=== PATIENT | male | born 1960 | race Caucasian/White ===

== ENCOUNTER 2016-12-30 15:15 | Emergency (ER) | payer BC ==
[2016-12-30 15:27] VITALS: BP 121/90
--- NOTE | 2016-12-30 15:47 | EDM.PDOC ---
ED HPI Skin/Rash - General Chief Complaint: Laceration Stated Complaint: FINGER CUT BLEADING [phone] Time Seen by Provider: 12/30/16 15:37 History Limitations: Reports: No limitations - History of Present Illness INITIAL COMMENTS - FREE TEXT/NARRATIVE: pt states that he cut his finger on a mandolin while cutting vegetables. right thumb with avulsion noted. bleeding uncontrolled upon arrival. Symptom Onset Date: 12/30/16 Timing: Reports: still present Location, Skin: Reports: upper extremity, right Quality: Reports: Throbbing Place of Occurrence: home Associated Symptoms: Reports: no other symptoms - Related Data Allergies Allergy/AdvReac Type Severity Reaction Status Date / Time No Known Allergies Allergy Verified 12/30/16 15:21 Home Meds: Ambulatory Orders Medication Instructions Recorded Confirmed Aspirin 1 tab PO DAILY 12/30/16 12/30/16 Lutein/Minerals/Vit A,C & E 1 tab PO DAILY 12/30/16 12/30/16 [I-Timi] [place]-3 Fatty Acids [Fish Oil] 1 tab PO DAILY 12/30/16 12/30/16 ED ROS GENERAL - Review of Systems Review Of Systems: See Below Skin: Reports: wound ED EXAM, SKIN/RASH Exam: See Below Skin: Wound/incision (avulsion to distal thumb, bleeding uncontrolled) Location, Skin: upper extremity, right ED SKIN PROCEDURES - Laceration/Wound Repair Right Distal Finger Lac/wound length in cm: 1 Appearance: subcutaneous Distal NVT: neuro & vascular intact Closed with: other (silver nitrate) Tetanus status addressed: Yes Complications: No Progress/Comments: pressure held with no relief of bleeding, silver nitrate used to cauterize bleeding vessels. bleeding controlled after cauterization and further pressure. pressure dressing applied. N/V intact Course - Vital Signs Last Recorded V/S: Last Vital Signs Temp 99.2 F 12/30/16 15:25 Pulse 93 12/30/16 15:25 Resp 20 12/30/16 15:25 BP 121/90 12/30/16 15:25 Pulse Ox 121 H 12/30/16 15:25 - Orders/Labs/Meds Orders: Active Orders 24 hr Category Date Time Status Vaccines to be Administered [RC] PER UNIT ROUTINE Care 12/30/16 16:30 Active Meds: Medications Discontinued Medications Generic Name Dose Route Start Last Admin Trade Name Freq PRN Reason Stop Dose Admin Diphtheria/Tetanus/Acell Pertussis 0.5 ml 12/30/16 16:30 12/30/16 16:36 Adacel IM 12/30/16 16:31 0.5 ml .ONCE ONE Administration Silver Nitrate 1 each 12/30/16 16:05 12/30/16 16:10 Silver Nitrate TOP 12/30/16 16:06 1 each ONETIME ONE Administration Silver Nitrate Confirm 12/30/16 16:12 12/30/16 16:15 Silver Nitrate Administered 12/30/16 16:13 1 each Dose Administration 1 each .ROUTE .STK-MED ONE Departure - Departure Time of Disposition: 16:50 Disposition: Home, Self-Care 01 Condition: good Clinical Impression: Laceration Instructions: Puncture Wound, [id number], Laceration Care, Adult, Easy-to- Read Forms: ED Department Discharge Additional Instructions: Keep finger clean and dry for 24-48 hours. Follow up with personal care physician if further problems, or return to the ER. - My Orders Last 24 Hours: My Active Orders 12/30/16 16:30 Vaccines to be Administered [RC] PER UNIT ROUTINE - Assessment/Plan Last 24 Hours: My Active Orders 12/30/16 16:30 Vaccines to be Administered [RC] PER UNIT ROUTINE
[2016-12-30] MEDS ORDERED: Silver Nitrate Applicator Each TOP ONE (16:05)
[2016-12-30] MEDS ORDERED: Silver Nitrate Applicator Each ONE (16:12)
[2016-12-30] MEDS ORDERED: Diphtheria,Pertussis(Acell),Tetanus Vaccine 0.5 ML SDV IM ONE (16:30)
== END 2016-12-30 16:54 | disposition home or self-care (01) ==
LOC: DL.ED 15:15
DX: S61.011A Laceration without foreign body of right thumb without damage to nail, initial encounter (principal); Z23 Encounter for immunization; W26.0XXA Contact with knife, initial encounter
CPT/HCPCS: 90715; 99283

== ENCOUNTER 2022-08-15 06:47 | Day surgery (SDC) | payer BC, OTHER ==
[~2022-08-15 06:47] MED LIST: Dextrose 5%-0.45% NaCl 1,000 ML IV SCH; Midazolam 1 MG/ML 2 ML SDV ONE; Sodium Chloride 0.9% 10 ML Syringe FLUSH PRN; Sodium Chloride 0.9% 10 ML Syringe FLUSH SCH; fentaNYL 100 MCG/2 ML SDV ONE
[2022-08-15] MEDS ORDERED: Midazolam 1 MG/ML 2 ML SDV IV ONE ×3 (06:48→08:07)
[2022-08-15] MEDS ORDERED: fentaNYL 100 MCG/2 ML SDV IV ONE ×3 (06:48→08:05)
[2022-08-15 09:06] VITALS: BP 104/74; PULSE 75
== END 2022-08-15 09:48 | disposition home or self-care (01) ==
LOC: DL.ENDO 06:47
PROVIDERS: ATTEND Internal Medicine Gastroenterology
DX: K44.9 Diaphragmatic hernia without obstruction or gangrene (principal); K21.9 Gastro-esophageal reflux disease without esophagitis; Z98.890 Other specified postprocedural states; Z72.0 Tobacco use
CPT/HCPCS: 43239; 87077; J2250; J3010; J7042

== ENCOUNTER 2022-08-17 06:52 | Day surgery (SDC) | payer OTHER ==
[~2022-08-17 06:52] MED LIST changes: -Sodium Chloride 0.9% 10 ML Syringe FLUSH SCH
[2022-08-17] MEDS ORDERED: Midazolam 1 MG/ML 2 ML SDV IV ONE ×5 (06:53→08:22)
[2022-08-17] MEDS ORDERED: fentaNYL 100 MCG/2 ML SDV IV ONE ×2 (06:53→08:14)
[2022-08-17] MEDS ORDERED: Sodium Chloride 0.9% 10 ML Syringe FLUSH SCH (09:00)
[2022-08-17 10:10] VITALS: BP 135/84; PULSE 78
== END 2022-08-17 09:55 | disposition home or self-care (01) ==
LOC: DL.ENDO 06:52
PROVIDERS: ATTEND Internal Medicine Gastroenterology
DX: Z12.11 Encounter for screening for malignant neoplasm of colon (principal); D12.8 Benign neoplasm of rectum; K64.8 Other hemorrhoids; K57.30 Diverticulosis of large intestine without perforation or abscess without bleeding; Z98.890 Other specified postprocedural states
CPT/HCPCS: 45385; J2250; J3010; J7042

== ENCOUNTER 2024-12-21 07:53 | Emergency (ER) | payer MEDICARE, BC ==
[2024-12-21] MEDS ORDERED: Sodium Chloride 0.9% 10 ML Syringe FLUSH PRN (08:20)
[2024-12-21] MEDS: Sodium Chloride 0.9% 1,000 ML IV ONE (08:23)
[2024-12-21 08:37] LABS: BASOPHILS PERCENT AUTO 0.3 % (0.0-1.0); EOSINOPHILS PERCENT AUTO 0.4 % (1.0-3.0); HEMOGLOBIN 12.2 g/dL (14.0-18.0); LYMPHOCYTES PERCENT AUTO 14.2 % (20.5-50.1); MEAN CORPUSCULAR HEMOGLOBIN 23.8 pg (27.0-34.0); MEAN CORPUSCULAR HGB CONC 32.1 g/dL (33.0-35.0); MEAN CORPUSCULAR VOLUME 74.2 fL (80-100); MONOCYTES PERCENT AUTO 8.8 % (2-8); NEUTROPHILS PERCENT AUTO 76.3 % (42.2-75.2); PLATELET COUNT,PLT 512 10^3/uL (150-450); RED BLOOD CELL COUNT 5.12 10^6/uL (4.6-6.2); WHITE BLOOD CELL COUNT,WBC 11.7 10^3/uL (5.0-10.0)
[2024-12-21 08:52] LABS: INR 1.1 (0.9-1.2); PROTHROMBIN TIME 11.1 SEC (9.0-12.0)
[2024-12-21 09:05] LABS: B-TYPE NATRIURETIC PEPTIDE,BNP 7 pg/ml (0-100)
[2024-12-21 09:14] LABS: A/G RATIO 0.56; ALANINE AMINOTRANSFERASE,ALT 57 U/L (16-63); ALBUMIN 2.7 g/dL (3.4-5.0); ALKALINE PHOSPHATASE 99 U/L (46-116); ANION GAP 8.4 mEq/L (7-13); ASPARTATE AMNIOTRANSFERASE,AST 27 U/L (15-37); BILIRUBIN TOTAL 0.6 mg/dL (0.2-1.0); BLOOD UREA NITROGEN,BUN 10 mg/dL (7-18); BUN/CREATININE RATIO 8.9 (No establ ref range); CALCIUM 9.2 mg/dL (8.5-10.1); CARBON DIOXIDE,CO2 25 mmol/L (21-32); CHLORIDE,CL 101 mmol/L (98-107); CREATININE 1.12 mg/dL (0.70-1.30); EST CRCL DRUG DOSING (CG) 54.61 mL/min; ESTIMATED GFR 72 mL/min (>=60); GLUCOSE RANDOM 107 mg/dL (70-99); LIPASE 39 U/L (16-77); MAGNESIUM 2.1 mg/dL (1.8-2.4); POTASSIUM,K 3.4 mmol/L (3.5-5.1); PROTEIN TOTAL,TP 7.5 g/dL (6.4-8.2); SODIUM,NA 131 mmol/L (136-145); T4 FREE 1.74 ng/dL (0.76-1.46); TSH ULTRASENSITIVE 1.05 uIU/mL (0.36-3.74)
[2024-12-21] MEDS: Iopamidol 612 MG/ML 100 ML Bottle IVPUSH ONE (09:18)
[2024-12-21 09:22] LABS: PERCENT FE SATURATION 5.7 % (20.0-50.0)
[2024-12-21] MEDS: Piperacillin/Tazobactam 4.5 GM in Sodium Chloride 0.9% 100 ML IV ONE (10:53)
[2024-12-21] MEDS: metroNIDAZOLE/Normal Saline 500 MG in Premix Bag 1 BAG IV ONE (10:53)
[2024-12-21] MEDS: VANCOmycin 1.25 GM in Sodium Chloride 0.9% 250 ML IV ONE (11:03)
[2024-12-21 12:08] VITALS: BP 159/97; PULSE 94
[2024-12-24 14:47] LABS: HCV AB BY CIA INTERP Negative (Negative)
[2024-12-25 10:41] LABS: QNTIFERON MITOGEN MIN NIL 9.99 IU/mL; QNTIFERON NIL 0.01 IU/mL; QNTIFERON PLUS TB1 MINUS NIL 0.03 IU/mL (<=0.34); QNTIFERON PLUS TB2 MINUS NIL 0.02 IU/mL (<=0.34); QNTIFERON TB GOLD PLUS Negative (Negative)
== END 2024-12-21 13:06 ==
LOC: DL.ED 07:53
DX: J85.1 Abscess of lung with pneumonia (principal); J18.9 Pneumonia, unspecified organism; I10 Essential (primary) hypertension; K21.9 Gastro-esophageal reflux disease without esophagitis; Z79.899 Other long term (current) drug therapy
CPT/HCPCS: 36415; 71260; 74177; 80053; 82728; 83036; 83540; 83550; 83690; 83735; 83880; 84439; 84443; 84484; 85025; 85610; 86480; 86803; 87389; 96361; 96365; 96366; 96368; 99285; 99285-25; G0103; J1836; J2543; J3371; J7030; Q9967